=== PATIENT | male | born 1990 | race Caucasian/White ===

== ENCOUNTER 2017-12-29 19:53 | Emergency (ER) | payer SELFPAY, OTHER ==
[2017-12-29] MEDS: CLINDAMYCIN 150 MG CAP PO (23:48)
[2017-12-29] MEDS: NORCO, ANEXSIA 5/325MG TABLET (HYDROcodone/ACETAMINOPHEN) PO (23:48)
== END 2017-12-30 00:22 | disposition home or self-care (01) ==
LOC: M ED 19:53
DX: K02.9 Dental caries, unspecified (principal); K13.79 Other lesions of oral mucosa; Z72.0 Tobacco use; Z79.899 Other long term (current) drug therapy; Z88.0 Allergy status to penicillin
CPT/HCPCS: 99282

== ENCOUNTER 2018-01-15 14:13 | Emergency (ER) | payer SELFPAY ==
[2018-01-15] MEDS: LIDOCAINE 1% MDV 20ML VIAL IM (14:31)
[2018-01-15] MEDS: cefTRIAXone SOD 250 MG VIAL (J0696) IM (14:31)
== END 2018-01-15 15:05 | disposition home or self-care (01) ==
LOC: M ED 14:13
DX: Z20.2 Contact with and (suspected) exposure to infections with a predominantly sexual mode of transmission (principal); Z88.0 Allergy status to penicillin
CPT/HCPCS: J0696

== ENCOUNTER 2019-10-25 09:58 | Emergency (ER) | payer SELFPAY ==
[~2019-10-25] VITALS: Ht 182.9 cm; Wt 95.5 kg
[~2019-10-25 09:58] MED LIST: CLEO300C2 PO; FLUO10CA9 PO; FLUO20CA20 PO; HYDR-3715 PO
[2019-10-25] MEDS ORDERED: IBUP200C25 PO (10:06)
[2019-10-25 10:59] LABS: BASO % 0.2 % (0.0-1.0); EOS # 0.1 10^3/uL (0.0-0.5); EOS % 0.5 % (0.0-3.0); HEMATOCRIT 44.9 % (42.0-52.0); HEMOGLOBIN 14.9 g/dl (13.5-17.5); LYMPH # 1.2 10^3/uL (1.5-5.0); LYMPH % 8.5 % (24.0-44.0); MEAN CORPUSCULAR HEMOGLOBIN 30.1 pg (27.0-33.0); MEAN CORPUSCULAR HGB CONC 33.2 g/dl (32.0-36.5); MEAN CORPUSCULAR VOLUME 90.7 fl (80.0-96.0); MONO # 1.7 10^3/uL (0.0-0.8); MONO % 12.3 % (0.0-5.0); NEUTROPHILS # 10.7 10^3/uL (1.5-8.5); NEUTROPHILS % 77.6 % (36.0-66.0); PLATELET COUNT, AUTOMATED 173 10^3/uL (150-450); RED BLOOD COUNT 4.95 10^6/uL (4.30-6.10); WHITE BLOOD COUNT 13.8 10^3/uL (4.0-10.0)
[2019-10-25] MEDS ORDERED: NS 1,000 ML IV ONE (11:00)
[2019-10-25] MEDS ORDERED: CLINDAMYCIN 900 MG in IV 1 EA IV ONE (11:00)
[2019-10-25] MEDS ORDERED: dexameTHASONE 4 MG/ML 1ML VIAL (J1100) IV ONE (11:00)
[2019-10-25] MEDS ORDERED: ISOVUE-370 76% 100ML VIAL (Q9967) As Ordered ONE (11:37)
--- NOTE | 2019-10-25 12:04 | REP ---
Clinical: Right-sided dental pain with swelling.. Technique: Axial contrast enhanced images from the skull base to the thoracic inlet with coronal and sagittal re-formations using 75 ml Isovue 370 intravenous contrast material. Findings: Right-sided soft tissue swelling, subcutaneous inflammatory stranding, as well as periodontal, submental and submandibular inflammatory changes are appreciated with right-sided cervical adenopathy consistent with cellulitis and infectious/inflammatory process. Areas suggestion for a small phlegmon/forming abscess in the right submental space deep/adherent to the right mandible pain measuring roughly 15 x 11 x 16 mm (axial images 37 - 43; coronal images 21 - 27). Right parapharyngeal soft tissue swelling is also noted. The airway remains patent. Impression: Right-sided infectious/inflammatory process consistent with cellulitis. A small phlegmon/forming abscess deep to the right mandible is suspected and requires physical correlation. Electronically Signed by Kendell Joshua MD 10/25/2019 11:55 A
[2019-10-25 13:32] VITALS: BP 126/65
--- NOTE | 2019-10-25 13:41 | REP ---
Clinical: Right mandibular abscess. Technique: Two Panorex views. Findings: Dentition and mandible appear relatively normal and intact. No obvious mandibular lucency or aggressive osseous lesions are appreciated. No obvious periodontal abscess identified. Impression: No obvious mandibular lesion. Electronically Signed by Kendell Joshua MD 10/25/2019 01:33 P
[2019-10-25] MEDS ORDERED: CLEO300C2 PO (14:18)
[2019-10-25] MEDS ORDERED: PRED10TA2 PO (14:21)
== END 2019-10-25 14:29 | disposition home or self-care (01) ==
LOC: M ED 09:58
DX: K12.2 Cellulitis and abscess of mouth (principal); Z88.0 Allergy status to penicillin
CPT/HCPCS: 70355; 70491; 80047; 85025; 87880; 96361; 96365; 96375; 99284; J1100; Q9967

== ENCOUNTER → 2020-01-21 | Outpatient (CLI) | payer OTHER ==
[~2020-01-21] MED LIST changes: +IBUP200C25 PO; +PRED10TA2 PO
[2020-01-21 14:16] LABS: HEMATOCRIT 48.7 % (42.0-52.0); HEMOGLOBIN 16.1 g/dl (13.5-17.5); MEAN CORPUSCULAR HEMOGLOBIN 30.5 pg (27.0-33.0); MEAN CORPUSCULAR HGB CONC 33.1 g/dl (32.0-36.5); MEAN CORPUSCULAR VOLUME 92.2 fl (80.0-96.0); PLATELET COUNT, AUTOMATED 176 10^3/uL (150-450); RED BLOOD COUNT 5.28 10^6/uL (4.30-6.10); WHITE BLOOD COUNT 6.7 10^3/uL (4.0-10.0)
[2020-01-21 14:33] LABS: ALT/SGPT 40 U/L (12-78); BILIRUBIN,TOTAL 0.2 MG/DL (0.2-1.0); BLOOD UREA NITROGEN 13 MG/DL (7-18); CALCIUM LEVEL 9.2 MG/DL (8.5-10.1); CARBON DIOXIDE LEVEL 30 MEQ/L (21-32); CHLORIDE LEVEL 106 MEQ/L (98-107); CHOLESTEROL LEVEL 233 MG/DL (<200); CHOLESTEROL RISK RATIO 5.825 (<5); CREATININE FOR GFR 1.08 MG/DL (0.70-1.30); FREE T4 1.03 NG/DL (0.76-1.46); GLOMERULAR FILTRATION RATE > 60.0 (>60); GLUCOSE, FASTING 97 MG/DL (70-100); HDL CHOLESTEROL 40 MG/DL (>40); LDL CHOLESTEROL 162 MG/DL (<100); NON-HDL-C 193 MG/DL; POTASSIUM SERUM 4.4 MEQ/L (3.5-5.1); SODIUM LEVEL 138 MEQ/L (136-145); TOTAL PROTEIN 7.4 GM/DL (6.4-8.2); TRIGLYCERIDES LEVEL 154 MG/DL (<150)
== END ==
LOC: M PLALAB 11:12
PROVIDERS: ATTEND Physician Assistant
DX: Z00.00 Encounter for general adult medical examination without abnormal findings (principal); Z13.1 Encounter for screening for diabetes mellitus; J45.20 Mild intermittent asthma, uncomplicated; Z13.29 Encounter for screening for other suspected endocrine disorder

== ENCOUNTER 2021-02-01 16:01 | Emergency (ER) | payer OTHER, SELFPAY ==
[~2021-02-01] VITALS: Ht 180.3 cm; Wt 82.5 kg
[2021-02-01] MEDS ORDERED: CLINDAMYCIN 900 MG in IV 1 EA IV ONE (17:05)
[2021-02-01 18:05] LABS: BASO % 0.3 % (0.0-1.0); EOS # 0.3 10^3/uL (0.0-0.5); EOS % 2.6 % (0.0-3.0); HEMOGLOBIN 16.4 g/dl (13.5-17.5); LYMPH % 19.7 % (24.0-44.0); MEAN CORPUSCULAR HEMOGLOBIN 31.7 pg (27.0-33.0); MEAN CORPUSCULAR HGB CONC 33.5 g/dl (32.0-36.5); MEAN CORPUSCULAR VOLUME 94.6 fl (80.0-96.0); MONO % 9.6 % (2.0-8.0); NEUTROPHILS % 67.4 % (36.0-66.0); PLATELET COUNT, AUTOMATED 248 10^3/uL (150-450); RED BLOOD COUNT 5.18 10^6/uL (4.30-6.10); WHITE BLOOD COUNT 10.4 10^3/uL (4.0-10.0)
[2021-02-01 18:23] LABS: BLOOD UREA NITROGEN 10 MG/DL (7-18); CALCIUM LEVEL 8.9 MG/DL (8.5-10.1); CARBON DIOXIDE LEVEL 26 MEQ/L (21-32); CHLORIDE LEVEL 105 MEQ/L (98-107); CREATININE FOR GFR 0.89 MG/DL (0.70-1.30); GLOMERULAR FILTRATION RATE > 60.0 (>60); GLUCOSE, FASTING 95 MG/DL (70-100); POTASSIUM SERUM 3.5 MEQ/L (3.5-5.1); SODIUM LEVEL 139 MEQ/L (136-145)
[2021-02-01 18:54] LABS: ERYTHROCYTE SEDIMENTATION RATE 5 mm/hr (0-15)
[2021-02-01] MEDS ORDERED: BACT800T5 PO (19:07)
[2021-02-01 19:23] VITALS: BP 105/97
== END 2021-02-01 19:24 | disposition home or self-care (01) ==
LOC: M ED 16:01
DX: L03.012 Cellulitis of left finger (principal); F17.200 Nicotine dependence, unspecified, uncomplicated; Z88.0 Allergy status to penicillin

== ENCOUNTER → 2022-02-22 | Outpatient (CLI) | payer OTHER ==
[~2022-02-22] MED LIST changes: +BACT800T5 PO; +FLUO-96 PO; -FLUO20CA20 PO
[2022-02-22 18:45] LABS: ALBUMIN 3.9 GM/DL (3.2-5.2); BILIRUBIN,DIRECT 0.1 MG/DL (0.0-0.2); BILIRUBIN,TOTAL 0.2 MG/DL (0.2-1.0); TOTAL PROTEIN 7.1 GM/DL (6.4-8.2)
== END ==
LOC: M LAB 12:39
PROVIDERS: ATTEND Nurse Practitioner Family
DX: F41.1 Generalized anxiety disorder (principal); F15.21 Other stimulant dependence, in remission; Z51.81 Encounter for therapeutic drug level monitoring

== ENCOUNTER 2025-07-25 05:49 | Observation (INO) | payer MEDICAID, OTHER, SELFPAY ==
[~2025-07-25] VITALS: Ht 180.3 cm; Wt 81.5 kg
[2025-07-25 06:45] LABS: BASO # 0.0 10^3/uL (0.0-0.2); BASO % 0.2 % (0.0-1.0); EOS # 0.0 10^3/uL (0.0-0.5); EOS % 0.1 % (0.0-3.0); LYMPH # 0.9 10^3/uL (1.5-5.0); LYMPH % 4.7 % (24.0-44.0); MONO # 1.5 10^3/uL (0.0-0.8); MONO % 7.5 % (2.0-8.0); NEUTROPHILS # 17.2 10^3/uL (1.5-8.5); NEUTROPHILS % 86.8 % (36.0-66.0); PLATELET COUNT, AUTOMATED 277 10^3/uL (150-450)
[2025-07-25 07:18] LABS: ALT/SGPT 24.0 U/L (7.0-40); AST/SGOT 40.0 U/L (<34); CALCIUM LEVEL 10.1 MG/DL (8.5-10.1); CARBON DIOXIDE LEVEL 22.0 MMOL/L (20-31); CHLORIDE LEVEL 103.0 MMOL/L (98-107); CPK CREATINE PHOSPHOKINASE 829.0 U/L (46-171); CREATININE FOR GFR 1.15 MG/DL (0.70-1.30); GLOMERULAR FILTRATION RATE 86.7 (>60); POTASSIUM SERUM 3.6 MMOL/L (3.5-5.1); SODIUM LEVEL 140.0 MMOL/L (136-145)
[2025-07-25 07:19] LABS: CK-MB VALUE MASS 3.3 NG/ML (<3.6); MB/CK RELATIVE INDEX 0.39 (< OR =4)
[2025-07-25] MEDS: NS (Normal Saline) 0.9% 1,000 ML IV ONE ×2 (12:01→15:45)
[2025-07-25 12:13] LABS: VENOUS BASE EXCESS -4.2 (-2.0-2.0); VENOUS HCO3 22.2 MMOL/L (23.0-27.0); VENOUS O2 SATURATION 63.2 % (60.0-80.0); VENOUS PARTIAL PRESSURE CO2 45.4 mmHg (38.0-50.0); VENOUS PARTIAL PRESSURE O2 34.9 mmHg (30.0-50.0); VENOUS PH 7.307 UNITS (7.330-7.430); VENOUS STANDARD HCO3 20.2 MMOL/L; VENOUS TOTAL CO2 23.6 MMOL/L (24.0-28.0)
[2025-07-25] MEDS: LEVALBUTEROL 1.25 MG 0.5ML CONCENTRATE NEB NEB PRN (12:39)
[2025-07-25 12:48] LABS: C REACTIVE PROTEIN QUANTITATIV 0.8 MG/DL (<1.0)
[2025-07-25 12:50] LABS: CK-MB VALUE MASS 7.9 NG/ML (<3.6)
[2025-07-25 13:00] LABS: MB/CK RELATIVE INDEX 0.21 (< OR =4)
[2025-07-25] MEDS ORDERED: LEVALBUTEROL 1.25 MG 0.5ML CONCENTRATE NEB INH PRN (16:45)
[2025-07-25] MEDS: LR 1,000 ML IV SCH (16:45)
[2025-07-25 17:08] LABS: MAGNESIUM LEVEL 2.6 MG/DL (1.8-2.4)
[2025-07-25] MEDS ORDERED: MED REC IN PROGRESS XX SCH (17:10)
[2025-07-25 17:53] LABS: ETHYL ALCOHOL (ETHANOL) < 0.003 % (0.000-0.010)
[2025-07-25 17:56] LABS: CK-MB VALUE MASS 7.0 NG/ML (<3.6)
[2025-07-25 18:12] LABS: CPK CREATINE PHOSPHOKINASE 4232 U/L (46-171); MB/CK RELATIVE INDEX 0.16 (< OR =4)
[2025-07-25 19:15] VITALS: BP 121/71; TEMP 98; O2SAT 98
[2025-07-25] MEDS ORDERED: LEVALBUTEROL 1.25 MG 0.5ML CONCENTRATE NEB INH SCH (20:00)
== END 2025-07-25 19:15 | disposition left against medical advice (07) ==
LOC: EDBD 05:49 → M ED 05:49 → M ED INP 05:50
PROVIDERS: ADMIT Student in an Organized Health Care Education/Training Program; ATTEND Student in an Organized Health Care Education/Training Program
DX: J45.901 Unspecified asthma with (acute) exacerbation (principal); M62.82 Rhabdomyolysis; D72.829 Elevated white blood cell count, unspecified; F32.A Depression, unspecified; F41.9 Anxiety disorder, unspecified; F15.10 Other stimulant abuse, uncomplicated; R00.0 Tachycardia, unspecified; F17.210 Nicotine dependence, cigarettes, uncomplicated; F17.290 Nicotine dependence, other tobacco product, uncomplicated; Z79.899 Other long term (current) drug therapy; Z88.0 Allergy status to penicillin
CPT/HCPCS: 36415; 71046; 80048; 80076; 82077; 82550; 82553; 82803; 83605; 83735; 84443; 84484; 85025; 85652; 86140; 87040; 87486; 87581; 87633; 87798; 93005; 93041; 94640; 94760; 96361; 96374; 99285; J2919

== ENCOUNTER 2025-07-26 09:35 | Emergency (ER) | payer MEDICAID ==
[~2025-07-26] VITALS: Ht 180.3 cm; Wt 83.8 kg
[2025-07-26 09:49] VITALS: TEMP 97.9
[2025-07-26] MEDS: OLANZapine INTRAMUSCULAR 10MG VIAL IM ONE (10:36)
[2025-07-26 11:07] LABS: PLATELET COUNT, AUTOMATED 237 10^3/uL (150-450)
[2025-07-26 11:28] LABS: ETHYL ALCOHOL (ETHANOL) < 0.003 % (0.000-0.010)
[2025-07-26 11:30] LABS: SALICYLATE LEVEL < 3.0 MG/DL (<30)
[2025-07-26 11:39] LABS: BARBITURATES URINE NEGATIVE (NEGATIVE); BENZODIAZEPINES URINE NEGATIVE (NEGATIVE); METHADONE URINE NEGATIVE (NEGATIVE); OPIATES URINE NEGATIVE (NEGATIVE); PHENCYCLIDINE URINE NEGATIVE (NEGATIVE)
[2025-07-26 11:41] LABS: AMPHETAMINES LEVEL URINE POSITIVE (NEGATIVE); CANNABINOIDS URINE POSITIVE (NEGATIVE); COCAINE METABOLITE URINE POSITIVE (NEGATIVE)
[2025-07-26 12:57] LABS: CPK CREATINE PHOSPHOKINASE 14442 U/L (46-171)
[2025-07-26 13:21] LABS: ALT/SGPT 57 U/L (7.0-40); AST/SGOT 240 U/L (<34); CALCIUM LEVEL 8.9 MG/DL (8.5-10.1); CARBON DIOXIDE LEVEL 20 MMOL/L (20-31); CHLORIDE LEVEL 109 MMOL/L (98-107); CREATININE FOR GFR 0.96 MG/DL (0.70-1.30); GLOMERULAR FILTRATION RATE > 90.0 (>60); POTASSIUM SERUM 3.3 MMOL/L (3.5-5.1); SODIUM LEVEL 142 MMOL/L (136-145)
[2025-07-26] MEDS: NS (Normal Saline) 0.9% 1,000 ML IV SCH (13:40)
[2025-07-26] MEDS: NS (Normal Saline) 0.9% 1,000 ML IV ONE (14:19)
[2025-07-26] MEDS ORDERED: LR 1,000 ML IV ONE (15:30)
[2025-07-26 16:00] VITALS: BP 125/69; O2SAT 97
== END 2025-07-26 16:22 | disposition left against medical advice (07) ==
LOC: M ED 09:35
DX: M62.82 Rhabdomyolysis (principal); F19.120 Other psychoactive substance abuse with intoxication, uncomplicated; R00.0 Tachycardia, unspecified; J45.909 Unspecified asthma, uncomplicated; F32.A Depression, unspecified; Z88.0 Allergy status to penicillin; Z53.9 Procedure and treatment not carried out, unspecified reason
CPT/HCPCS: 80048; 80076; 80143; 80307; 82077; 82550; 84443; 85027; 93005; 96360; 96361; 96372; 99285; J2060; J2359